=== PATIENT | female | born 1950 | race Caucasian/White ===

== ENCOUNTER 2017-05-27 12:19 | Outpatient (CLI) | payer MEDICARE | END 2017-05-27 12:20 | LOC: LAB 12:19 | PROVIDERS: ATTEND Orthopaedic Surgery | DX: Z79.01 Long term (current) use of anticoagulants (principal) | CPT/HCPCS: 36415; 85610 ==

== ENCOUNTER 2019-02-27 09:25 | Day surgery (SDC) | payer MEDICARE ==
--- NOTE | 2019-03-02 09:30 | GI Report ---
DATE OF PROCEDURE: 02/27/2019 PROCEDURE PERFORMED: Colonoscopy with biopsies. SURGEON: Abhinav Stephens M.D., F.A.C.P. INDICATION FOR PROCEDURE: The patient is referred because of chronic diarrhea. She did have a cholecystectomy 10 years ago. Family history includes some cancers. She does use milk products. On exam before the procedure the patient does have significant central obesity. Heart: Regular. Lungs: Decreased breath sounds. Her weight is 245. PROCEDURE MEDICATION: Propofol, as per Anesthesia. DESCRIPTION OF PROCEDURE: The Olympus video colonoscope was advanced into the rectum. In the sigmoid colon the patient has moderate diverticular disease, no obvious diverticulitis. Atonic redundant colon took some nurse compression to reach the cecum. The terminal ileum looks normal. On slow withdrawal the cecum, ascending colon, transverse colon - no obvious intraluminal lesions noted. We did take random biopsies looking for microscopic colitis. Likewise, in the descending colon [id number] sigmoid, moderate diverticular disease, redundancy. No obvious intraluminal lesions were noted. Retroflexion in the rectum shows a hemorrhoid, otherwise normal. The patient tolerated the procedure well. FINDINGS: 1. Moderate diverticular disease in sigmoid and descending colon. 2. Very atonic, redundant colon. 3. Post cholecystectomy diarrhea is not uncommon. RECOMMENDATIONS: 1. Would take a fiber preparation like Metamucil or Benefiber at bedtime. 2. Would use low lactose milk products. 3. Further recommendations pending the biopsy results. ABHINAV STEPHENS M.D., F.A.C.P. Ronal Job#: [id number] MTDD
== END 2019-02-27 11:45 | disposition home or self-care (01) ==
LOC: OPSURG 09:25
PROVIDERS: ATTEND Internal Medicine Gastroenterology
DX: K52.9 Noninfective gastroenteritis and colitis, unspecified (principal); K57.30 Diverticulosis of large intestine without perforation or abscess without bleeding; K59.8 Other specified functional intestinal disorders; K64.9 Unspecified hemorrhoids; E66.9 Obesity, unspecified; Z80.0 Family history of malignant neoplasm of digestive organs; Z80.1 Family history of malignant neoplasm of trachea, bronchus and lung; Z90.49 Acquired absence of other specified parts of digestive tract
CPT/HCPCS: 45380